=== PATIENT | female | born 1980 | race Caucasian/White ===

== ENCOUNTER 2024-06-30 12:06 | Emergency (ER) | payer BC ==
[~2024-06-30] VITALS: Ht 162.6 cm; Wt 63.5 kg
[2024-06-30] MEDS: KETOROLAC TROMETHAMINE 15 MG/ML VIAL IM ONE (13:00)
[2024-06-30] MEDS ORDERED: ACETAMINOPHEN ES 500 MG TABLET ONE (13:12)
[2024-06-30] MEDS: ACETAMINOPHEN ES 500 MG TABLET PO ONE (13:17)
[2024-06-30 14:22] LABS: PREGNANCY TEST URINE QUAL NEGATIVE (NEGATIVE)
[2024-06-30] MEDS ORDERED: IBUP-1490 PO (14:24)
[2024-06-30] MEDS ORDERED: KETOROLAC TROMETHAMINE 15 MG/ML VIAL ONE (14:24)
[2024-06-30] MEDS ORDERED: ACET-2605 PO (14:24)
[2024-06-30 14:35] VITALS: BP 117/75; TEMP 98.6; O2SAT 100
== END 2024-06-30 14:36 | disposition home or self-care (01) ==
LOC: ER 12:06
DX: M25.562 Pain in left knee (principal); R22.42 Localized swelling, mass and lump, left lower limb; W18.39XA Other fall on same level, initial encounter; Y93.89 Activity, other specified; Y92.89 Other specified places as the place of occurrence of the external cause; Y99.8 Other external cause status
CPT/HCPCS: 99284; 29505; 73564; 84703; 96372; J1885